=== PATIENT | male | born 1955 | race Caucasian/White ===

== ENCOUNTER 2018-08-18 19:49 | Observation (INO) ==
--- NOTE | 2018-08-18 21:15 | Emergency Department Note ---
Disposition Clinical Impression: Chest pain Qualifiers: Chest pain type: unspecified Qualified Code(s): R07.9 - Chest pain, unspecified Disposition: Admitted As Inpatient Condition: Good Time of Disposition: 23:45 General Adult HPI - General Chief complaint: ED Chest Pain Stated complaint: "I had a heat stroke at 3pm" Time Seen by Provider: 08/18/18 21:13 Nursing Notes Reviewed: Yes Vital Signs Reviewed: Yes - History of Present Illness HPI Narrative: 63-year-old male with no prior medical history who presents emergency Department with complaints of chest pain, throat pain and feeling lightheaded earlier t clem. The patient is concern he had a heat stroke as he felt lightheaded and off balance but presented to the emergency department because the discomfort in his chest and throat continued any intermittent lethal short of breath. He states he has had ongoing chest pain for the last few days worsened with exertion. He noted no swelling in his legs, nausea, vomiting he has had diarrhea for several days. He has a history of diverticulitis and bowel perforation requiring surgery several years ago. He denies any abdominal pain. He denies any hematochezia or melena. Pain Scale: 5 - Related Data Home Medications Medication Instructions Recorded Confirmed Aspirin 81 mg PO DAILY 01/21/16 10/08/17 Loratadine [Claritin] 10 mg PO DAILY 10/08/17 10/08/17 Previous Rx's Medication Instructions Recorded predniSONE [PredniSONE] 20 mg PO DAILY 12 Days #20 tablet 11/02/17 Allergies Allergy/AdvReac Type Severity Reaction Status Date / Time No Known Allergies Allergy Verified 10/08/17 10:06 Review of Systems: ROS per history of present illness, all other systems reviewed and negative or normal. All systems ED: reviewed and negative except as stated. Review of Systems: As Per HPI Past Medical History - Past Medical History Attestation: Yes The following information was validated with the patient. Medical history: Reports: hepatitis, liver disease Surgical history: Reports: colostomy, herniorrhaphy, other Psychiatric history: Reports: no psych history - Social History Smoking Status: Former smoker Smokeless Tobacco Status: No Alcohol use: Reports: none Drug use: Reports: none Physical Exam General: Conversant. No apparent distress. Follow commands. Appears stated age. Neck: No JVD. Trachea midline. Neck supple. Eyes: PERRL. No scleral icterus. HENT: Normocephalic and atraumatic. Moist mucus membranes. Cardiovascular: Regular rate and rhythm. Normal S1 and S2. No murmurs appreciated. Normal capillary refill. Extremities well perfused with 2+ distal pulses bilaterally. No edema. Pulmonary: Normal and equal breath sounds bilaterally, anteriorly and posteriorly. No wheezes, rales, or rhonchi. Not in respiratory distress. Speaks in full sentences. Abdomen: Soft, nondistended, and tontender. No bruits or masses. No guarding. Neuro: Alert and oriented x3. No slurred speech. No focal deficits noted. Skin: No rashes noted on visualized skin. Musculoskeletal: No bony abnormalities visualized. Moves all extremities. Psych: Normal mood. Pleasant. Makes appropriate eye contact. Course Vital Signs Temperature 98.5 F 08/18/18 19:57 Pulse Rate 87 08/18/18 19:57 Respiratory Rate 18 08/18/18 19:57 Blood Pressure 150/90 08/18/18 19:57 O2 Sat by Pulse Oximetry 97 08/18/18 19:57 Temperature 97.7 F 08/19/18 04:15 Pulse Rate 80 08/19/18 04:15 Respiratory Rate 17 08/19/18 04:15 Blood Pressure 132/83 08/19/18 04:15 O2 Sat by Pulse Oximetry 94 08/19/18 04:15 Oxygen Delivery Oxygen Delivery Room Air Medical Decision Making - [facility] Narrative Medical decision making narrative: 63 with no prior medical history presents emergency department with chest pain and feeling that his throat is closing as well as lightheadedness and shortness of breath. Patient states this is been ongoing for the last several days and it worsens with exertion. Patient is concerned that he had a heat stroke. On arrival patient is in no acute distress. Vital signs are stable upon arrival. He is denying current chest pain. He is not tachycardic or hypoxic. Given the patient's symptoms did obtained chest evaluation including CBC, BMP, PTT/INR/PTT, troponin, TSH and LFTs. The patient has no significant anemia, leukocytosis, electrolyte abnormality. Renal function is normal. TSH is not significantly elevated. Troponin 1 less than 0.03. EKG does show left bundle branch block which is new but this is difficult to ascertain whether this is new given his most recent previous EKG was in 2010. Chest x-ray shows no evidence of focal consolidation. The patient did have return of his chest pain. He was therefore initiated on nitroglycerin 3 with slight improvement in his pain. He was also given aspirin 325 mg. Given the patient's family history of cardiac disease, no prior cardiac evaluation and ongoing pain to believe he warrants admission for continued ischemic evaluation. Discussed case with on-call hospitalist Dr. Stewart who agrees with plan for admission and accepts the patient to the inpatient service. Patient agrees with and understands course of treatment plan including plan for admission. All questions answered. - Medical Records Medical records reviewed: Yes I reviewed the patient's medical records. - Lab Data Lab results reviewed: Yes I reviewed the patient's lab results. Result diagrams: 08/18/18 21:45 08/18/18 21:45 Lab Results 08/18/18 08/18/18 08/18/18 Range/Units 21:45 21:45 21:45 WBC 8.4 (4.3-11.1) K/mcL RBC 5.56 H (4.19-5.50) M/mcL Hgb 16.1 (12.9-16.9) g/dL Hct 47.8 (37.5-50.1) % MCV 86.0 (83.0-100.0) fL MCH 29.0 (28.0-33.3) pg MCHC 33.7 (31.6-35.5) g/dL RDW 14.1 (11.5-14.5) % Plt Count 154 (140-400) K/mcL MPV 10.4 (9.4-12.4) fL Immature Gran % 0.6 (0-4) % Seg Neutrophils % 57.5 % Lymphocytes % 28.6 % Monocytes % 10.8 % Eosinophils % 2.1 % Basophils % 0.4 % Neutrophils # 4.8 (1.6-8.9) K/mcL Lymphocytes # 2.4 (0.6-4.6) K/mcL Monocytes # 0.9 (0.0-1.3) K/mcL Eosinophils # 0.2 (0.0-0.6) K/mcL Basophils # 0.0 (0.0-0.2) K/mcL PT 12.1 (9.4-12.1) Seconds INR 1.1 APTT 29.7 (26.0-36.0) Seconds Sodium 137 (136-145) mEq/L Potassium 4.2 (3.5-5.1) mEq/L Chloride 104 (98-107) mEq/L Carbon Dioxide 25 (23-29) mEq/L BUN 11 (8-23) mg/dL Creatinine 0.89 (0.70-1.30) mg/dL Est GFR ( Amer) > 60 (> 60) Est GFR (Non-Af Amer) > 60 (> 60) BUN/Creatinine Ratio 12 (6-26) Glucose 91 (70-105) mg/dL Calculated Osmolality 283 (280-300) Calcium 9.2 (8.6-10.3) mg/dL Total Bilirubin 0.7 (0.3-1.0) mg/dL Direct Bilirubin 0.1 (0.0-0.2) mg/dL Indirect Bilirubin 0.6 (0.0-1.2) mg/dL AST 56 H (13-39) Units/L ALT 79 H (7-52) Units/L Alkaline Phosphatase 56 (34-104) Units/L Troponin I < 0.03 (< 0.04) ng/mL Serum Total Protein 7.7 (6.4-8.9) g/dL Albumin 4.0 (3.5-5.7) g/dL Globulin 3.7 H (2.4-3.5) g/dL Albumin/Globulin Ratio 1.1 (1.1-2.2) TSH 2.168 (0.340-5.600) mcIU/mL - Radiology Data Radiology results reviewed: Yes I reviewed the patient's radiology results. Chest X-Ray 08/18/18 19:59 IMPRESSION: No acute process. D/ / Pablo Salinas MD / Pablo Salinas MD Interpreting Provider: Pablo Salinas MD - EKG Data EKG #1 EKG attestation: Yes I reviewed and interpreted this EKG. EKG results narrative: Normal sinus rhythm rate of 87. Normal axis. There is a left bundle-branch block but otherwise no acute ischemic changes. Left bundle branch block is new when compared with prior from 12/16/10. Heart Score - Score History: Moderately Suspicious EKG: Non Specific repolarisation Disturbance Age: 45-65 Risk Factors: 1-2 risk factors Troponin: Less than normal limit HEART Score Total: 4
[2018-08-18 22:09] LABS: Basophils % 0.4 %; Eosinophils # 0.2 K/mcL (0.0-0.6); Eosinophils % 2.1 %; Hematocrit 47.8 % (37.5-50.1); Hemoglobin 16.1 g/dL (12.9-16.9); Immature Granulocytes % 0.6 % (0-4); Lymphocytes # 2.4 K/mcL (0.6-4.6); Lymphocytes % 28.6 %; Mean Corpuscular HGB Conc 33.7 g/dL (31.6-35.5); Mean Platelet Volume 10.4 fL (9.4-12.4); Monocytes # 0.9 K/mcL (0.0-1.3); Monocytes % 10.8 %; Neutrophils # 4.8 K/mcL (1.6-8.9); Platelet Count 154 K/mcL (140-400); Red Blood Count 5.56 M/mcL (4.19-5.50); Red Cell Distribution Width 14.1 % (11.5-14.5); Segmented Neutrophils % 57.5 %; White Blood Count 8.4 K/mcL (4.3-11.1)
[2018-08-18 22:15] LABS: INR 1.1; Prothrombin Time 12.1 Seconds (9.4-12.1)
[2018-08-18 22:18] LABS: Activated Partial Thrombo Time 29.7 Seconds (26.0-36.0)
[2018-08-18 22:52] LABS: Alanine Aminotransferase 79 Units/L (7-52); Albumin/Globulin Ratio 1.1 (1.1-2.2); Alkaline Phosphatase 56 Units/L (34-104); Aspartate Amino Transferase 56 Units/L (13-39); BUN/Creatinine Ratio 12 (6-26); Bilirubin,Direct 0.1 mg/dL (0.0-0.2); Bilirubin,Indirect 0.6 mg/dL (0.0-1.2); Bilirubin,Total 0.7 mg/dL (0.3-1.0); Blood Urea Nitrogen 11 mg/dL (8-23); Calcium 9.2 mg/dL (8.6-10.3); Carbon Dioxide 25 mEq/L (23-29); Chloride 104 mEq/L (98-107); Globulin 3.7 g/dL (2.4-3.5); Glucose 91 mg/dL (70-105); Osmolality,Calculated 283 (280-300); Potassium 4.2 mEq/L (3.5-5.1); Sodium 137 mEq/L (136-145); Thyroid Stimulating Hormone 2.168 mcIU/mL (0.340-5.600); Total Protein 7.7 g/dL (6.4-8.9); Troponin I < 0.03 ng/mL (< 0.04); eGFR For African Americans > 60 (> 60); eGFR For Non-African Americans > 60 (> 60)
[2018-08-18] MEDS ORDERED: Aspirin 81 MG TAB.CHEW PO STA (23:10)
[2018-08-18] MEDS ORDERED: Nitroglycerin 0.4 MG TAB.SUBL SL PRN (23:22)
--- NOTE | 2018-08-19 02:00 | Internal Med History&Physical ---
Date of Encounter: 08/19/18 Time of Encounter: 01:59 Internal Medicine - H&P: HPI Chief complaint: exhaustion Admitted From: Home () Plans for Post Hospital Care: Home History of present illness: Miguel Lei is a 63 year old man with hereditary hemochromatosis and a history of substance use disorder that led to Hep C which has now been treated and achieved SVR. He presents to the ER today saying that earlier in the day he developed a sudden sensation of exhaustion, lightheadedness and dizziness assoc iated with a discomfort in his chest, mild shortness of breath and nausea describing the feelings as though he were having heat exhaustion even though he was inside his house. He admits to having episodic chest pain over the last few days associated with exertion. In the ER he was seen clinically and hemodynamically stable. EKG as reviewed by me revealed a LBBB pattern; his last EKG available for comparison is dated 2010 and had anterior Q-waves. He denies a history of heart disease. He tells me he has never been hypertensive before so he finds it odd that his BP is elevated today. He reports a history of SC in father at age 56. He was given loading dose ASA and SL NTG. Vitals: Reviewed General: Well-developed, well-appearing, NAD Skin: Warm and dry. HEENT: Moist mucous membranes. No conjunctivae pallor. Neck: No lymphadenopathy. No JVD. No carotid bruits. No palpable thyroid. Chest: Normal thoracic expansion. Normal breath sounds. Clear to auscultation. Heart: Normal S1 & S2; rhythmic. No rubs or murmurs. Abdomen: Non-distended, soft and non-tender to palpation. No peritoneal r eaction. Extremities: No clubbing, cyanosis or edema. No calf tenderness. Normal distal pulses. Neurological: Awake, alert and oriented to person, place and time. No focal deficits. Psych: Affect appropriate. Assessment/Plan 1. Chest pain: associated with lightheadedness and shortness of breath. Acute in onset but had preceding episodes of chest pain with exertion. EKG showing new LBBB pattern. Will monitor on telemetry, obtain an echo and schedule for stress test. 2. Hemochromatosis: Next therapeutic phlebotomy is scheduled for next month. Continue daily aspirin. 3. Hypertension: Seemingly new onset. Will need to continue to monitor his vitals serially and should be followed as an outpatient. 4. Abnormal LFTs: Has hx of HCV s/p tx w/ SVR. May need to recheck to ensure no relapse. This can be done and monitored as an outpatient. Past Med Surg Social Fam HX - Past Medical History Medical history: arthritis, hepatitis, liver disease, thyroid disease Additional medical history: diverticulitis Psychiatric history: no psych history - Past Surgical History Surgical History: colostomy, herniorrhaphy, other Additional surgical history: colostomy. colostomy reversal. hernia repair. mass removed from back - Social History Smoking Status: Former smoker Smokeless Tobacco Status: No Alcohol use: none Drug use: none Internal Medicine - H&P: Meds Aspirin 81 mg PO DAILY 01/21/16 [History] Loratadine [Claritin] 10 mg PO DAILY 10/08/17 [History] predniSONE [PredniSONE] 20 mg PO DAILY 12 Days #20 tablet 11/02/17 [Rx] Allergy/AdvReac Type Severity Reaction Status Date / Time No Known Allergies Allergy Verified 10/08/17 10:06 All Systems PM: A 10-system review of systems was performed and is negative for pertinent findings except as documented above in the HPI. - Constitutional Vitals: Temp Pulse Resp BP Pulse Ox 97.8 F 69 17 144/88 97 08/19/18 01:44 08/19/18 01:44 08/19/18 01:44 08/19/18 01:44 08/19/18 01:44 Exam: . Internal Med - H&P Results - Labs CBC & Chem 7: 08/18/18 21:45 08/18/18 21:45 Labs: Short CBC 08/18/18 Range/Units 21:45 WBC 8.4 (4.3-11.1) K/mcL Hgb 16.1 (12.9-16.9) g/dL Hct 47.8 (37.5-50.1) % Plt Count 154 (140-400) K/mcL Neutrophils # 4.8 (1.6-8.9) K/mcL BMP 08/18/18 21:45 Sodium 137 Potassium 4.2 Chloride 104 Carbon Dioxide 25 BUN 11 Creatinine 0.89 Glucose 91 Calcium 9.2 Cardiac Enzymes 08/18/18 Range/Units 21:45 Troponin I < 0.03 (< 0.04) ng/mL Liver Function 08/18/18 Range/Units 21:45 Total Bilirubin 0.7 (0.3-1.0) mg/dL Direct Bilirubin 0.1 (0.0-0.2) mg/dL AST 56 H (13-39) Units/L ALT 79 H (7-52) Units/L Alkaline Phosphatase 56 (34-104) Units/L Albumin 4.0 (3.5-5.7) g/dL - Impressions ITS Impressions Chest X-Ray 08/18/18 19:59 IMPRESSION: No acute process. D/ / Pablo Salinas MD / Pablo Salinas MD Interpreting Provider: Pablo Salinas MD - Time Spent With Patient Total time spent is greater than 50% in coordination of care (as documented) at patient's floor/unit and/or counseling patient: Greater than 35 minutes
--- NOTE | 2018-08-19 02:10 | Emergency Department Note ---
Disposition Clinical Impression: Chest pain Qualifiers: Chest pain type: unspecified Qualified Code(s): R07.9 - Chest pain, unspecified Disposition: Admitted As Inpatient Condition: Good Time of Disposition: 23:30 General Adult HPI - General Chief complaint: ED Chest Pain Stated complaint: "I had a heat stroke at 3pm" Time Seen by Provider: 08/18/18 21:13 Nursing Notes Reviewed: Yes Vital Signs Reviewed: Yes - History of Present Illness Pain Scale: 0 - Related Data Home Medications Medication Instructions Recorded Confirmed Aspirin 81 mg PO DAILY 01/21/16 10/08/17 Loratadine [Claritin] 10 mg PO DAILY 10/08/17 10/08/17 Previous Rx's Medication Instructions Recorded predniSONE [PredniSONE] 20 mg PO DAILY 12 Days #20 tablet 11/02/17 Allergies Allergy/AdvReac Type Severity Reaction Status Date / Time No Known Allergies Allergy Verified 10/08/17 10:06 Past Medical History - Past Medical History Medical history: Reports: arthritis, hepatitis, liver disease, thyroid disease Surgical history: Reports: colostomy, herniorrhaphy, other Psychiatric history: Reports: no psych history - Social History Smoking Status: Former smoker Smokeless Tobacco Status: No Alcohol use: Reports: none Drug use: Reports: none Course Vital Signs Temperature 98.5 F 08/18/18 19:57 Pulse Rate 87 08/18/18 19:57 Respiratory Rate 18 08/18/18 19:57 Blood Pressure 150/90 08/18/18 19:57 O2 Sat by Pulse Oximetry 97 08/18/18 19:57 Temperature 97.8 F 08/19/18 01:44 Pulse Rate 69 08/19/18 01:44 Respiratory Rate 18 08/19/18 01:59 Blood Pressure 155/100 08/19/18 01:59 O2 Sat by Pulse Oximetry 97 08/19/18 01:44 Oxygen Delivery Oxygen Delivery Room Air Medical Decision Making - Medical Records Medical records reviewed: Yes I reviewed the patient's medical records. - Lab Data Lab results reviewed: Yes I reviewed the patient's lab results. Result diagrams: 08/18/18 21:45 08/18/18 21:45 Lab Results 08/18/18 08/18/18 08/18/18 Range/Units 21:45 21:45 21:45 WBC 8.4 (4.3-11.1) K/mcL RBC 5.56 H (4.19-5.50) M/mcL Hgb 16.1 (12.9-16.9) g/dL Hct 47.8 (37.5-50.1) % MCV 86.0 (83.0-100.0) fL MCH 29.0 (28.0-33.3) pg MCHC 33.7 (31.6-35.5) g/dL RDW 14.1 (11.5-14.5) % Plt Count 154 (140-400) K/mcL MPV 10.4 (9.4-12.4) fL Immature Gran % 0.6 (0-4) % Seg Neutrophils % 57.5 % Lymphocytes % 28.6 % Monocytes % 10.8 % Eosinophils % 2.1 % Basophils % 0.4 % Neutrophils # 4.8 (1.6-8.9) K/mcL Lymphocytes # 2.4 (0.6-4.6) K/mcL Monocytes # 0.9 (0.0-1.3) K/mcL Eosinophils # 0.2 (0.0-0.6) K/mcL Basophils # 0.0 (0.0-0.2) K/mcL PT 12.1 (9.4-12.1) Seconds INR 1.1 APTT 29.7 (26.0-36.0) Seconds Sodium 137 (136-145) mEq/L Potassium 4.2 (3.5-5.1) mEq/L Chloride 104 (98-107) mEq/L Carbon Dioxide 25 (23-29) mEq/L BUN 11 (8-23) mg/dL Creatinine 0.89 (0.70-1.30) mg/dL Est GFR ( Amer) > 60 (> 60) Est GFR (Non-Af Amer) > 60 (> 60) BUN/Creatinine Ratio 12 (6-26) Glucose 91 (70-105) mg/dL Calculated Osmolality 283 (280-300) Calcium 9.2 (8.6-10.3) mg/dL Total Bilirubin 0.7 (0.3-1.0) mg/dL Direct Bilirubin 0.1 (0.0-0.2) mg/dL Indirect Bilirubin 0.6 (0.0-1.2) mg/dL AST 56 H (13-39) Units/L ALT 79 H (7-52) Units/L Alkaline Phosphatase 56 (34-104) Units/L Troponin I < 0.03 (< 0.04) ng/mL Serum Total Protein 7.7 (6.4-8.9) g/dL Albumin 4.0 (3.5-5.7) g/dL Globulin 3.7 H (2.4-3.5) g/dL Albumin/Globulin Ratio 1.1 (1.1-2.2) TSH 2.168 (0.340-5.600) mcIU/mL - Radiology Data Radiology results reviewed: Yes I reviewed the patient's radiology results. Chest X-Ray 08/18/18 19:59 IMPRESSION: No acute process. D/ / Pablo Salinas MD / Pablo Salinas MD Interpreting Provider: Pablo Salinas MD - EKG Data EKG #1 EKG attestation: Yes I reviewed and interpreted this EKG. EKG results narrative: EKG shows a normal sinus rhythm with ventricular rate of 87. Left bundle branch block which was not present on prior EKG however the prior EKG was from 12/16/2010. Attestation Statement - Attestation Attestation: I, Kelvin Montez MD, personally evaluated this patient and discussed their management with the resident physician. I reviewed the resident's note and agree with the documented findings, medical decision making, and plan of care. I reviewed the residents documentation and agree with the residents assessment and plan of care. I have personally had face to face time with the patient. I personally supervised and was present for the evans/critical portions of the following procedures completed by the resident: EKG interpretation. 63-year-old male presents to the emergency department with a complaint of intermittent chest pain over the past 5 days which he describes as a pressure in the upper chest as well as a choking sensation in his throat. Today he had a worse episode about midafternoon of pressure in the chest associated with shortness of breath and diaphoresis. He became weak and lightheaded. Patient concerned that he was having a heat stroke. No prior history of heart disease. No history of hypertension. Patient states his father from an [place] at age 56. On examination patient is a well-developed well-nourished male in no acute distress. He is alert and oriented 3. There is no cyanosis or diaphoresis. Chest is nontender to palpation. Breath sounds are clear and equal bilaterally. Heart regular rate and rhythm. Abdomen is soft and nontender with normal bowel sounds. EKG shows a normal sinus rhythm with ventricular rate of 87. Left bundle branch block which was not present on prior EKG however the prior EKG was from 12/16/2010. Chest x-ray negative. Labs reviewed. Troponin negative. The hospitalist, Dr. Stewart, was consulted and accepted admission of the patient.
[2018-08-19] MEDS: *HR* Heparin 5,000 UNIT/ML VIAL SQ SCH ×2 (05:57→17:59)
[2018-08-19] MEDS ORDERED: Regadenoson 0.4 MG/5 ML SYRINGE IVP ONE (06:07)
--- NOTE | 2018-08-19 10:09 | Cardiology Consult Note ---
<Thomas Boudreaux - Last Filed: 08/19/18 10:58> Date of Encounter: 08/19/18 Time of Encounter: 07:30 Assessment and Plan (1) Chest pain Status: Acute Patient presents with multiple complaints including chest pain. EKG shows LBBB- appears to be new. Troponin negative. Stress test and echocardiogram ordered by primary team pending. No prior cardiac testing. Reports remote stress test. Currently without pain after stress test. Further recommendation to follow. Qualifiers: Chest pain type: unspecified Qualified Code(s): R07.9 - Chest pain, unspecified (2) LBBB (left bundle branch block) Status: Acute Discussion w patient/family: The assessment and plan as outlined above was discussed with the patient and/or family members who expressed understanding and agreement. All questions were answered. Thank you for involving us in the care of your patient. Please call with any questions. History of Present Illness Consult date: 08/19/18 Requesting physician: Alan Carlson Consult reason: Chest pain, LBBB Chief complaint: dizziness, weakness, chest pain History of present illness: Mr. Lei is a 63 year old male with past medical history of treated hepatitis C, hemochromotosis, diverticulitis, and prior tobacco abuse who presented with multiple complaints. C/o weakness, dizziness, and pressure across his chest while he was outside yesterday. States "I think I had a heat stroke." His chest discomfort continues to be intermittent at rest since yesterday. Endorses ongoing symptoms for sometime but feels he may have ignored them. His work-up included EKG that shows LBBB. Compared to EKG in 2016 EKG has changed. Prior EKG shows prior septal AR and RBBB. Troponin is negative. Patient denies prior history of AR or CAD. Past Med Surg Social Fam HX - Past Medical History Medical history: arthritis, hepatitis, liver disease, thyroid disease Additional medical history: diverticulitis Psychiatric history: no psych history - Past Surgical History Surgical History: colostomy, herniorrhaphy, other Additional surgical history: colostomy. colostomy reversal. hernia repair. mass removed from back - Social History Smoking Status: Former smoker Smokeless Tobacco Status: No Alcohol use: none Drug use: none - Family History Father History Unknown: Yes Adopted: No Living Status: Still Living Hx Family Cardiac Disorders: Yes Hx Family Respiratory Disorders: No Hx Family Cancer: No Hx Family GI Disorders: No Hx Family Genitourinary Disorders: No Hx Family Endocrine Disorder: No Hx Family Musculoskeletal Disorders: No Hx Family Neuromuscular Disorders: No Hx Family Neurologic Disorders: No Hx Family HEENT Disorders: No Hx Family Autoimmune Disorders: No Hx Family Reproductive Disorders: No Hx Family Psychosocial Disorders: No Hx Family Medical Disorders: No Medications and Allergies Aspirin 81 mg PO DAILY #30 tab.chew 08/20/18 [Rx] Metoprolol [Lopressor] 12.5 mg PO BID #60 tablet 08/20/18 [Rx] Allergy/AdvReac Type Severity Reaction Status Date / Time No Known Allergies Allergy Verified 08/20/18 12:44 All Systems Review: The remainder of the systems were reviewed and are negative Physical Examination Vital Signs, Last 4 Hours Temp Pulse Resp BP Pulse Ox 08/19/18 06:44 98.2 F 66 16 148/88 97 General: Conversant, No Apparent Distress HEENT: Atraumatic, Normocephaly, Mucus Membranes Moist Neck: No JVD, Normal carotid pulses Cardiac: Reg Rate and Rhythm, Normal S1 and S2, No Murmur Lungs: Normal Breath Sounds, No Wheeze, Rales, Rhonchi Neuro: Alert and responsive, No focal deficits noted Abdomen: Soft, Non-Tender Skin: No rashes noted on visualized skin Musculoskeletal: No Chest Wall Tenderness Extremities: No Clubbing, No Cyanosis, No Edema, Normal Pulses Results 08/18/18 21:45 08/18/18 21:45 Lab Results 08/18/18 08/18/18 08/18/18 21:45 21:45 21:45 WBC 8.4 Hgb 16.1 Hct 47.8 Plt Count 154 INR 1.1 APTT 29.7 Sodium 137 Potassium 4.2 Chloride 104 Carbon Dioxide 25 BUN 11 Creatinine 0.89 Glucose 91 Calcium 9.2 Total Bilirubin 0.7 AST 56 H ALT 79 H Alkaline Phosphatase 56 Troponin I < 0.03 TSH 2.168 08/19/18 04:46 WBC Hgb Hct Plt Count INR APTT Sodium Potassium Chloride Carbon Dioxide BUN Creatinine Glucose Calcium Total Bilirubin AST ALT Alkaline Phosphatase Troponin I < 0.03 TSH - Imaging and Cardiology Stress Test: pending Echo: pending - EKG Interpretation EKG results cardiology: personally reviewed (LBBB, SR) Consult Discharge Plan - Plan Instructions: Chest Pain (DC) Referrals: Josiah,Jarad, MD [Primary Care Provider] - Tigre Galvan MD [Non-Partnered Physician] - Trevor Woody MD [Partnered Physician] - Prescriptions: Aspirin 81 mg PO DAILY #30 tab.chew Metoprolol [Lopressor] 12.5 mg PO BID #60 tablet <Tigre Galvan - Last Filed: 08/20/18 21:25> Date of Encounter: 08/20/18 - Attending Attestation I have personally performed a face to face evaluation on this patient. I have reviewed and agree with the documented findings and care plan as documented by the SPECIALIST FIELD ENGINEER. History and Exam by me shows: 63 y/o M with chest pain and LBBB. Agree with pharm nuclear stress test and echocardiogram. Further recommendations to follow. Thanks, Tigre Galvan MD FAC Assessment and Plan Discussion w patient/family: The assessment and plan as outlined above was discussed with the patient and/or family members who expressed understanding and agreement. All questions were answered. Thank you for involving us in the care of your patient. Please call with any questions. History of Present Illness History of present illness: Mr. Lei is a 63 year old male All Systems Review: The remainder of the systems were reviewed and are negative Results 08/18/18 21:45 08/18/18 21:45
--- NOTE | 2018-08-19 14:59 | Event Note ---
Date of Encounter: 08/19/18 Time of Encounter: 08:00 Patient was seen and examined at bedside. Currently denies any chest pain. Denies shortness of breath or palpitations. Reports that his chest pressure began when he was working outside yesterday and felt as though he was having a heat stroke. Chest pain occurred intermittently both at rest and on ambulation. He reports that it has been going on for some time however he has not seek any medical attention. Does report that he has had a stress test a while ago however cannot recall the results. HAS answered. He understands that he is to remain nothing by mouth for stress test Vital signs reviewed Obese, in no acute distress Clear to auscultation Regular rate and rhythm S1 and S2 Moving all 4 extremities no edema Alert and oriented 3 no focal deficit Assessment and plan Chest pain will rule out ACS New LBBB hemochromatosis We will follow stress test and echocardiogram Troponins were negative 2 Cardiology was consulted will follow recommendations Continue with home medications if not contraindicated on chronic phlebotomy as Op
--- NOTE | 2018-08-19 17:36 | Electrocardiograph Report ---
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
[2018-08-19] MEDS: Aspirin 81 MG TAB.CHEW PO SCH (18:00)
[2018-08-20] MEDS: *HR* Heparin 5,000 UNIT/ML VIAL SQ SCH (06:03)
[2018-08-20] MEDS: Aspirin 81 MG TAB.CHEW PO SCH (09:06)
[2018-08-20 12:55] VITALS: BP 109/72
--- NOTE | 2018-08-20 13:03 | Discharge Summary ---
- NOTES TO OUTPATIENT PROVIDER Notes to Outpatient Provider: anjum curry with cardiology as OP - card was provided - lipid panel and possible initiation of statins if LFTS have improved. follow up with hmeatology for annual phlebotomy as OP. follow up with GI for RUQ, AFP and HCV Orders not resulted at time of discharge: Pending orders 08/19/18 01:52 NM felipe perf SPECT multi [NM] Routine Date of Encounter: 08/20/18 Time of Encounter: 09:00 - Discharge Diagnosis (1) Chest pain Priority: Primary Status: Acute Qualifiers: Chest pain type: unspecified Qualified Code(s): R07.9 - Chest pain, unspecified (2) LBBB (left bundle branch block) Priority: Secondary Status: Acute (3) Hepatitis C Priority: Secondary Status: Chronic Qualifiers: Viral hepatitis chronicity: chronic Hepatic coma status: without hepatic coma Qualified Code(s): B18.2 - Chronic viral hepatitis C (4) Hereditary hemochromatosis Priority: Secondary Status: Chronic Hospital course: "Miguel Lei is a 63 year old man with hereditary hemochromatosis and a history of substance use disorder that led to Hep C which has now been treated and achieved SVR. He presents to the ER today saying that earlier in the day he developed a sudden sensation of exhaustion, lightheadedness and dizziness associated with a discomfort in his chest, mild shortness of breath and nausea describing the feelings as though he were having heat exhaustion even though he was inside his house. He admits to having episodic chest pain over the last few days associated with exertion. In the ER he was seen clinically and hemodynamically stable. EKG as reviewed by me revealed a LBBB pattern; his last EKG available for comparison is dated 2010 and had anterior Q-waves. He denies a history of heart disease. He tells me he has never been hypertensive before so he finds it odd that his BP is elevated today. He reports a history of [place] in father at age 56. He was given loading dose ASA and SL NTG." patient presenetd with above presentation and was admitted for chest pain to rule out ACS. cardiology was consuletd TTE and stress test performed without acute abnormalities ( full report below). troponins negative x3. 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 galvan and he recommended metoprolol 12.5 mg BID, his card was provided to patient and he understands that he will need to follow up with cardiology as OP. he has scheduled phlebotomy as OP with Dr. cabezas in september for his annual phlebotomy. was also recommended to follow up with GI for follow up for HCV to have RUQ and AFP performed he understands. was counseled on weight loss and nutrition. to follow up with PCP and have lipid panels followed. Not on statins secondary to elevated LFTS understands that he will need to follow up with cardiology and PCP closely and for them to start lipid lowering medication as per their discretion. As per patient he takes aspirin 325 for spasms. He has never been prescribed aspirin 325 by any physician. He was told by his primary care physician's take aspirin 81 mg daily however he believes that taking his aspirin 325 at times for his spasms as needed. Reports that he had that have a lipid panel as outpatient and was told that he did not need to go on lipid-lowering medications. He understands that he will need to have follow-up lipid panels performed. TTE: Impressions: LVEF 55%. Normal LV chamber size and function. Mild concentric left ventricular hypertrophy. Mild left ventricular diastolic dysfunction. Atypical septal motion consistent with bundle branch block. Normal right ventricular structure and function. No significant valvular dysfunction. No evidence of pulmonary hypertension. Stress test Pharmacologic stress ECG is non-diagnostic for ischemia due to baseline LBBB. Gated EF = 62%. Large sized, mild to moderate intensity, fixed perfusion defect throughout much of the inferior, inferoseptal, and anteroseptal segments. Wall motion appears normal. These findings are most consistent with artifact. Perfusion imaging was negative for ischemia or infarct. 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 - Time Spent with Patient Total time spent providing and/or coordinating discharge services: Time spent: Less than 30 minutes - Discharge Medications Prescriptions: New Aspirin 81 mg PO DAILY #30 tab.chew Metoprolol [Lopressor] 12.5 mg PO BID #60 tablet Discontinued Aspirin [Ecotrin] 325 mg PO 2-3XD PRN PRN Reason: Pain Home Medications: Aspirin 81 mg PO DAILY #30 tab.chew 08/20/18 [Rx] Metoprolol [Lopressor] 12.5 mg PO BID #60 tablet 08/20/18 [Rx] Allergies/Adverse Reactions: Allergy/AdvReac Type Severity Reaction Status Date / Time No Known Allergies Allergy Verified 08/20/18 12:44 Date of admission: 08/18/18 23:59 Primary care physician: Jarad Rahman MD Consults: 08/19/18 07:23 Consult to Cardiology [CONS] Routine Comment: Consulting Provider: Cardiology Jodie Reason for Consult: chest pain ,new LBBB, for stress test Call Completed: No - Constitutional Vitals: Temp Pulse Resp BP Pulse Ox 98.0 F 75 17 109/72 95 08/20/18 12:55 08/20/18 12:55 08/20/18 12:55 08/20/18 12:55 08/20/18 12:55 Exam: Obese, in no acute distress Clear to auscultation Regular rate and rhythm S1 and S2 Moving all 4 extremities no edema Alert and oriented 3 no focal deficit - Patient Status Disposition: Home, Self-Care Condition: Good Functional capacity at discharge: independent ambulation Overall status at discharge: patient is back to baseline - Discharge Instructions Follow Up With: Jarad Rahman MD [Primary Care Provider] - Trevor Woody MD [Partnered Physician] - Tigre Galvan MD [Non-Partnered Physician] - - Diet and Activity Activity: increase activity as tolerated Diet: low fat, low cholesterol
--- NOTE | 2018-08-23 15:41 | Electrocardiograph Report ---
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
== END 2018-08-20 14:55 | disposition home or self-care (01) ==
LOC: 3NENU 19:49 → EMEROOARM 19:49 → 3NENU 08-19 00:59
PROVIDERS: ADMIT Internal Medicine; ATTEND Internal Medicine